=== PATIENT | male | born 1980 | race Caucasian/White ===

== ENCOUNTER 2019-09-13 02:11 | Emergency (ER) | payer BC ==
[~2019-09-13] VITALS: Ht 175.3 cm; Wt 108.9 kg
[2019-09-13] MEDS ORDERED: AMARYL4 MG PO (02:22)
[2019-09-13] MEDS ORDERED: METFORMIN HCL500 M3 PO (02:22)
[2019-09-13 03:10] VITALS: BP 115/72
== END 2019-09-13 03:10 | disposition home or self-care (01) ==
LOC: M.ERS 02:11
DX: S01.81XA Laceration without foreign body of other part of head, initial encounter (principal); I10 Essential (primary) hypertension; E11.9 Type 2 diabetes mellitus without complications; Y09 Assault by unspecified means; Y93.89 Activity, other specified; Y92.89 Other specified places as the place of occurrence of the external cause; Y99.8 Other external cause status